=== PATIENT | female | born 1975 | race African-American/Black ===

== ENCOUNTER 2019-09-23 10:55 | Emergency (ER) | payer MEDICARE ==
[2019-09-23 11:33] LABS: ABSOLUTE EOSINOPHILS # (AUTO) 0.4 10^3/uL (0.0-0.6); ABSOLUTE LYMPHOCYTES (AUTO) 0.2 10^3/uL (0.5-4.7); ABSOLUTE MONOCYTES (AUTO) 0.3 10^3/uL (0.1-1.4); ABSOLUTE NEUT (AUTO) 3.4 10^3/uL (1.7-8.2); EOSINOPHILS % (AUTO) 9.5 % (0-6); HEMATOCRIT 32.5 % (36.0-47.0); HEMOGLOBIN 10.5 g/dL (12.0-15.5); LYMPHOCYTES % (AUTO) 5.4 % (13-45); MEAN CORPUSCULAR HGB CONC 32.4 g/dL (32.0-36.0); MEAN CORPUSCULAR VOLUME 89 fl (80-97); MONOCYTES % (AUTO) 6.4 % (3-13); PLATELET COUNT 207 10^3/uL (150-450); RED BLOOD COUNT 3.64 10^6/uL (3.72-5.28); RED CELL DISTRIBUTION WIDTH 14.9 % (11.5-14.0); SEGMENTED NEUTROPHILS % (AUTO) 77.7 % (42-78); TOTAL CELLS COUNTED % (AUTO) 100 %; WHITE BLOOD COUNT 4.4 10^3/uL (4.0-10.5)
[2019-09-23 12:16] LABS: ALBUMIN 4.4 g/dL (3.5-5.0); ALKALINE PHOSPHATASE 91 U/L (38-126); ANION GAP 15 (5-19); ASPARTATE AMINO TRANSFERASE 12 U/L (14-36); BILIRUBIN,DIRECT 0.4 mg/dL (0.0-0.4); BILIRUBIN,TOTAL 0.5 mg/dL (0.2-1.3); BLOOD UREA NITROGEN 46 mg/dL (7-20); CALCIUM 8.6 mg/dL (8.4-10.2); CARBON DIOXIDE 13 mmol/L (22-30); CHLORIDE 112 mmol/L (98-107); GLUCOSE 146 mg/dL (75-110); POTASSIUM 4.9 mmol/L (3.6-5.0); TOTAL PROTEIN 7.5 g/dL (6.3-8.2)
[2019-09-23 12:19] LABS: ALCOHOL < 10 mg/dL (NONE DETECTED)
[2019-09-23] MEDS ORDERED: DIPHENHYDRAMINE HCL 50 MG/ML VIAL IV ONE ×2 (15:57→17:45)
[2019-09-23] MEDS ORDERED: HYDROMORPHONE HCL INJ/PF 2 MG/ML AMPULE IV ONE (15:57)
[2019-09-23] MEDS ORDERED: ONDANSETRON HCL INJ/PF 4 MG/2 ML SDV IV ONE (15:57)
--- NOTE | 2019-09-23 18:31 | ER Document Report ---
ED General - General Chief Complaint: Seizure Stated Complaint: POSSIBLE SEIZURE Time Seen by Provider: 09/23/19 14:05 Primary Care Provider: LAILA DAMON MD [ACTIVE STAFF] - Follow up as needed TRAVEL OUTSIDE OF THE [place] IN LAST 30 DAYS: No - HPI Notes: Patient is a 43-year-old female who presents to the emergency department for evaluation. She is not a very good historian. She states to me that she was at school, was just "not feeling right." She states that she is unsure as to what was going on. She states she has headache, abdominal pain. She believes she may have had a seizure. She has a history of "stress-induced" seizures. She does not have any seizure medications. She states that these happen frequently. 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 She states she is been taking her medications as prescribed, with the exception of today. No fevers. No nausea or vomiting. No other acute complaints or concerns. This is not the worst headache of her life. - Related Data Allergies/Adverse Reactions: No Known Allergies Allergy (Unverified 09/23/19 11:25) Home Medications: Prograf, CellCept, prednisone, insulin, Coreg Past Medical History - General Information source: Patient, Relative - Social History Smoking Status: Never Smoker Family History: Hypertension Patient has suicidal ideation: No Patient has homicidal ideation: No - Past Medical History Cardiac Medical History: Reports: Hx Congestive Heart Failure, Hx Hypertension Endocrine Medical History: Reports: Hx Diabetes Mellitus Type 2 Renal/ Medical History: Reports: Hx End Stage Renal Disease GI Medical History: Reports: Other - Gastroparesis Past Surgical History: Reports: Other - J-tube placement, partial left mastectomy port placement, renal transplant Review of Systems - Review of Systems Constitutional: See HPI EENT: No symptoms reported Cardiovascular: No symptoms reported Respiratory: No symptoms reported Gastrointestinal: See HPI Genitourinary: No symptoms reported Musculoskeletal: No symptoms reported Skin: No symptoms reported Neurological/Psychological: No symptoms reported Physical Exam - Vital signs Vitals: Resp Pulse Ox 19 99 09/23/19 11:05 09/23/19 11:05 - Notes Notes: Vital signs reviewed, please refer to chart. Head is normocephalic, atraumatic. Pupils equal round, reactive to light. Neck is supple without meningismus. Heart is regular rate and rhythm. Lungs are clear to auscultation bilaterally. Port noted in right anterior chest without surrounding skin changes. Abdomen is soft, nontender, normoactive bowel sounds throughout. Jejunostomy tube in place without surrounding induration or erythema. Extremities without cyanosis, clubbing. Posterior calves are nontender. Peripheral pulses are equal. Skin is warm and dry. Patient is awake, alert, oriented x3. Cranial nerves II - XII are grossly intact without focal neurological deficits. Strength is plus 5 out of 5 bilateral upper and lower extremities. Sensation is intact. Reflexes symmetrical. Intact [id number], rapid alternating movements, rolo l-to-patel. Course - Re-evaluation Re-evalutation: 09/23/19 18:30 Patient presents emergency department for evaluation. Laboratory investigations were obtained. She was medicated for her headache as well as her abdominal pain with Dilaudid and Zofran. She also complained of itching with Dilaudid, so she was given Benadryl. Laboratory investigations were obtained. Her bicarb is low, her creatinine was high, but her potassium and other electrolytes were unremarkable. Her quantitative beta-hCG was actually found to be positive but only at a rate of 7. She has not had a menstrual period in the last 2 to 3 months. She states she is not sexually active. I do believe this to be a false positive. I explained her that she needs to follow-up with gynecology in regards to this. I will give her a lab slip to have this repeated in 48 hours to see if it increases. She voiced understanding. Otherwise, I spoke with Dr. Ortiz, transplant surgeon at [facility]. He was able to review her prior notes and laboratory investigations. 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 They are trying to maintain her renal f unction as long as possible. She is to continue her other medications, follow- up with primary care, nephrology, transplant team. Return to the ED with worsening or new concerning symptoms of any sort. - Vital Signs Vital signs: Temp Pulse Resp BP Pulse Ox 97.9 F 14 101/65 99 09/23/19 19:05 09/23/19 19:05 09/23/19 19:05 09/23/19 19:05 - Laboratory Result Diagrams: 09/23/19 11:15 09/23/19 11:15 Laboratory results interpreted by me: 09/23/19 09/23/19 09/23/19 11:15 11:15 11:15 RBC 3.64 L Hgb 10.5 L Hct 32.5 L RDW 14.9 H Lymph % (Auto) 5.4 L Eos % (Auto) 9.5 H Absolute Lymphs (auto) 0.2 L Chloride 112 H Carbon Dioxide 13 L BUN 46 H Creatinine 8.01 H Est GFR ( Amer) 7 L Est GFR (MDRD) Non-Af 5 L Glucose 146 H AST 12 L Serum HCG, Qual POSITIVE H Beta HCG, Quant 09/23/19 11:15 RBC Hgb Hct RDW Lymph % (Auto) Eos % (Auto) Absolute Lymphs (auto) Chloride Carbon Dioxide BUN Creatinine Est GFR ( Amer) Est GFR (MDRD) Non-Af Glucose AST Serum HCG, Qual Beta HCG, Quant 7.14 H Discharge - Discharge Clinical Impression: Generalized abdominal pain, Positive blood test Headache Qualifiers: Headache type: unspecified Headache chronicity pattern: acute headache Intractability: not intractable Qualified Code(s): R51 - Headache Condition: Stable Disposition: HOME, SELF-CARE Instructions: Abdominal Pain ([facility]), Headache ([facility]) Additional Instructions: Your blood test was positive today for . You should have this redrawn in 48 hours. It is possible this is a false positive, but this definitely needs followed up. Please follow-up with [facility] in regards to this. Your kidney function is still decreased, but it seems to be near your recent baseline. Follow-up with your primary care provider as well as the transplant team at [facility]. Return to the emergency department with worsening or new concerning symptoms of any sort. Forms: Follow-Up Laboratory Testing Referrals: LAILA DAMON MD [ACTIVE STAFF] - Follow up as needed
[2019-09-23 19:09] VITALS: BP 101/65
== END 2019-09-23 19:09 | disposition home or self-care (01) ==
LOC: ER 10:55
DX: R10.84 Generalized abdominal pain (principal); R56.9 Unspecified convulsions; R51 Headache; Z32.01 Encounter for pregnancy test, result positive; I13.2 Hypertensive heart and chronic kidney disease with heart failure and with stage 5 chronic kidney disease, or end stage renal disease; E11.22 Type 2 diabetes mellitus with diabetic chronic kidney disease; N18.6 End stage renal disease; I50.9 Heart failure, unspecified; Z94.0 Kidney transplant status; Z93.4 Other artificial openings of gastrointestinal tract status
CPT/HCPCS: 36591; 99284; 96374; 96375; 36415; 80307; 84702; 83735; 84703; 85025; 80053; J1200; J1170; J2405; J1642